=== PATIENT | male | born 1965 | race Caucasian/White ===

== ENCOUNTER → 2017-09-22 | Outpatient (CLI) | payer SELFPAY ==
[2017-09-22 13:52] LABS: HEMOGLOBIN 20.4 g/dL (13.5-18.0)
[2017-09-22 13:53] LABS: HEMATOCRIT 57.2 % (42.0-54.0)
== END ==
LOC: LAB 13:30
PROVIDERS: ATTEND Nurse Practitioner Family
DX: D58.2 Other hemoglobinopathies (principal)
CPT/HCPCS: 36415; 85014; 85018; 99195

== ENCOUNTER → 2017-10-05 | Outpatient (CLI) | payer SELFPAY ==
[2017-10-05 13:42] LABS: BASOPHILS # (AUTO) 0.1 X10^3/uL (0.0-0.1); BASOPHILS % (AUTO) 1.2 % (0.2-1.0); EOSINOPHILS # (AUTO) 0.1 x10^3/uL (0.0-0.2); EOSINOPHILS % (AUTO) 0.8 % (0.9-2.9); HEMATOCRIT 54.3 % (42.0-54.0); LYMPHOCYTES # (AUTO) 1.7 X10^3/uL (1.3-2.9); LYMPHOCYTES % (AUTO) 17.4 % (21.0-51.0); MEAN CORPUSCULAR HEMOGLOBIN 36.6 pg (27.0-34.0); MEAN CORPUSCULAR HGB CONC 35.3 g/dL (33.0-35.0); MEAN CORPUSCULAR VOLUME 103.6 fL (80.0-100.0); MEAN PLATELET VOLUME 8.2 fL (7.4-11.0); MONOCYTES # (AUTO) 0.9 x10^3/uL (0.3-0.8); MONOCYTES % (AUTO) 8.9 % (0.0-13.0); NEUTROPHILS # (AUTO) 6.9 x10^3/uL (2.2-4.8); NEUTROPHILS % (AUTO) 71.7 % (42.0-75.0); PLATELET COUNT 184 X10^3/uL (150.0-450.0); RED BLOOD COUNT 5.24 X10^6/uL (4.7-6.0); WHITE BLOOD COUNT 9.6 X10^3/uL (3.6-10.0)
[2017-10-05 14:07] LABS: HEMOGLOBIN 19.2 g/dL (13.5-18.0)
== END ==
LOC: LAB 13:20
PROVIDERS: ATTEND Nurse Practitioner Family
DX: D75.1 Secondary polycythemia (principal)
CPT/HCPCS: 36415; 85025; 99195

== ENCOUNTER 2018-04-26 15:58 | Inpatient (IN) ==
[2018-04-26] MEDS ORDERED: ZOFRAN INJ 4 MG VIAL IVP PRN (17:37)
--- NOTE | 2018-04-26 17:42 | DR.H&P ---
H&P - History & Physical for Day of: H&P Date: 04/26/18 - Chief Complaint Chief Complaint: ABDOMINAL PAIN, N/V, SOB, WEAKNESS - History of Present Illness History of Present Illness: 52 WM DIRECT ADMIT FROM DR CARRENO OFFICE WITH ER FOLLOW UP CO ABDOMINAL PAIN WITH N/V X 2 WEEKS, JAUNDICE, "NOT ATE IN 2 WEEKS" CAN HOLD SOME LIQUIDS DOWN. PT WAS SEEN IN [facility] ON 04/21 WITH PANCREATITIS AND LIVER CIRRHOSIS. SPOUSE REPORTS VERY WEAK, IN WHEELCHAIR, THICK TONGUE, NOT EATING. PT HAS PMH OF DAILY ETOH INTAKE, NOT ALCOHOL SINCE LAST WEDNESDAY. PT IS SMOKER. SPOUSE REPORTS VOMITING BLACK EMESIS, NO BRIGHT RED BLOOD. PT AND SPOUSE DENIES ANY S/S DT'S. NO KNOWN CARDIAC DISEASE, HX OF ELEVATED BP WITHOUT HYPERTENSION. - Past Medical History Past Medical History: Arthritis, Cirrhosis - Past Surgical History Surgical History: No History - Family History Family Medical History: Diabetes Mellitus, Cancer - Social History Does patient currently use any type of tobacco product: Yes Have you used tobacco products in the last 12 months: Yes Type of Tobacco Use: Cigarettes How many years tobacco product used: 30 Alcohol Use: Other (HX OF HEAVY ETOH INTAKE, REPORTS NONE SINCE 7 DAYS AGO) Drug Use: None - Medications Home Medications: No Known Drug Allergies Allergy (Verified 04/26/18 16:43) CONTINUE taking the following medications NK 04/26/18 [History] - Review of Systems Constitutional: Weakness, Malaise Eyes: Other (JAUNDICE SCLERA) ENT: No Symptoms Reported Respiratory: Shortness of Breath Cardiovascular: Edema Gastrointestinal: Nausea, Vomiting, Abdominal Pain, Constipation Genitourinary: No Symptoms Reported Musculoskeletal: Leg Pain Skin: Bruising Neurological: Weakness, Change in Speech ("THICK TONGUE") Oriented: Normal Eyes: Other (JAUNDICE) Ear: Normal Nose: Normal Throat: Normal Respiratory: RLL Diminished, LLL Diminished Cardiovascular: Normal, Irregular, Edema Auscultation: Bowel Sounds: Decreased Palpation: Liver Enlarged, Other (DIFFUSE DISTENSION) Tenderness: Diffuse Skin: Decreased Turgur Musculoskeletal: Right, Left, Leg, Motor Deficit, Sensory Deficit Psychiatric: Depression Mood Description: Depressed Affect: Depressed Speech Pattern: Appropriate, Delayed - Assessment/Plan (1) Pancreatitis Status: Acute Plan: ADMIT, ICU. ADMISSION LABS CBC CMP AMMONIA, AMYLASE AND LIPASE, UA. CT ABD PELVIS WITH IV CONTRAST. GENTLE IV HYDRATION, NAUSEA CONTROL, PPI. BEDSIDE SUCTION, DT PRECAUTIONS, CONTINUOUS CARDIAC AND BP MONITORING (2) Abdominal pain Status: Acute (3) Cirrhosis of liver Status: Acute (4) SOB (shortness of breath) Status: Acute (5) Ascites Status: Acute (6) N&V (nausea and vomiting) Status: Acute - Allergies Allergies/Adverse Reactions: Allergies Allergy/AdvReac Type Severity Reaction Status Date / Time No Known Drug Allergies Allergy Verified 04/26/18 16:43
[2018-04-26 17:46] LABS: BASOPHILS % (AUTO) 0.4 % (0.2-1.0); EOSINOPHILS % (AUTO) 0.1 % (0.9-2.9); HEMATOCRIT 35.1 % (42.0-54.0); HEMOGLOBIN 12.6 g/dL (13.5-18.0); LYMPHOCYTES # (AUTO) 1.1 X10^3/uL (1.3-2.9); LYMPHOCYTES % (AUTO) 13.5 % (21.0-51.0); MEAN CORPUSCULAR HEMOGLOBIN 43.7 pg (27.0-34.0); MEAN CORPUSCULAR HGB CONC 35.9 g/dL (33.0-35.0); MEAN CORPUSCULAR VOLUME 121.8 fL (80.0-100.0); MEAN PLATELET VOLUME 9.1 fL (7.4-11.0); MONOCYTES # (AUTO) 0.3 x10^3/uL (0.3-0.8); MONOCYTES % (AUTO) 3.5 % (0.0-13.0); NEUTROPHILS # (AUTO) 6.5 x10^3/uL (2.2-4.8); NEUTROPHILS % (AUTO) 82.5 % (42.0-75.0); PLATELET COUNT 131 X10^3/uL (150.0-450.0); RED BLOOD COUNT 2.88 X10^6/uL (4.7-6.0); RED CELL DISTRIBUTION WIDTH 16.3 % (11.6-16.5); WHITE BLOOD COUNT 7.9 X10^3/uL (3.6-10.0)
[2018-04-26 17:56] LABS: AMMONIA < 10 umol/L (11-32)
--- NOTE | 2018-04-26 17:59 | RAD ---
History shortness of breath Study: AP chest Comparison: None Findings: The lungs are clear and the heart and mediastinum are unremarkable. There is no edema or effusion. Impression: No evidence for active cardiopulmonary disease Reported By:
[2018-04-26] MEDS ORDERED: CHRONULAC PO SCH (18:00)
[2018-04-26 18:02] LABS: PLATELET MORPHOLOGY COMMENT NORMAL (NORMAL); TARGET CELLS NOTED
[2018-04-26 18:07] LABS: ALANINE AMINOTRANSFERASE 103 Units/L (12-78); ALKALINE PHOSPHATASE 228 Units/L (46-116); AMYLASE 50 Units/L (25-115); ASPARTATE AMINO TRANSFERASE 263 Units/L (15-37); BLOOD UREA NITROGEN 25 mg/dL (7-18); CALCIUM 8.6 mg/dL (8.5-10.1); CARBON DIOXIDE 27.8 mmol/L (21-32); CHLORIDE 85 mmol/L (98-107); COR CA(FOR HYPOALB) 9.4 mg/dL (8.5-10.1); CREATININE 1.14 mg/dL (0.70-1.30); LIPASE 845 Units/L (73-393); SODIUM 129 mmol/L (136-145); TOTAL PROTEIN 8.2 g/dL (6.4-8.2); eGFR NON BLACK RACES > 60 (>60)
[2018-04-26] MEDS: D5 1/2 NS 1000 ML 1,000 ML IV SCH (18:51)
[2018-04-26] MEDS: NS 1/2 1000 ML IV 1,000 ML IV SCH (18:52)
[2018-04-26] MEDS ORDERED: K-DUR TAB 20 MEQ PO PRN (20:59)
[2018-04-26] MEDS ORDERED: POTASSIUM CHL 40 MEQ/NS 0.45% 500 ML IV PRN (20:59)
[2018-04-26] MEDS ORDERED: MAGNESIUM SULFATE 1 GRAM/100 mL PREMIX 1 GM/100 ML BAG IV PRN (20:59)
[2018-04-26] MEDS ORDERED: MICRO K EXTEN CAP 10 MEQ PO PRN (20:59)
[2018-04-26] MEDS ORDERED: KLOR-CON PO PRN (20:59)
[2018-04-26] MEDS ORDERED: POTASSIUM CHLORIDE LIQ 20 MEQ UDC PO PRN (20:59)
[2018-04-26] MEDS ORDERED: POTASSIUM CHL 60 MEQ/NS 0.45% 500 ML IV PRN (20:59)
[2018-04-26] MEDS: PROTONIX INJ 40 MG VIAL IVP SCH (21:27)
[2018-04-27] MEDS ORDERED: NS 1/2 1000 ML IV 1,000 ML IV ONE (02:14)
[2018-04-27] MEDS: NS 1/2 1000 ML IV 1,000 ML IV SCH ×2 (02:27→18:54)
--- NOTE | 2018-04-27 06:26 | CT ---
HISTORY: Cirrhosis Study: CT abdomen pelvis with contrast Comparison: None Technique: Axial post-contrast images with coronal and sagittal reformats. Dose reduction procedures were used with mA/kv adjusted for body size. Findings: The lung bases are clear. There is a moderate amount of ascites present. The liver is enlarged and demonstrates a prominent caudate lobe and nodular contour suggestive of cirrhosis. Additionally there are large geographic areas of fatty infiltration interspersed with some more normal looking parenchyma creating a somewhat heterogeneous parenchymal pattern. Evaluation with MRI should be considered in order to exclude an underlying neoplastic process such as hepatocellular carcinoma which would be difficult to visualize on this examination. The spleen, adrenal glands, and pancreas are within normal limits. No opaque stones are visible within the gallbladder. There are prominent veins present adjacent to the stomach. Portal hypertension is likely present. The kidneys are unobstructed and without stones or masses. No ureteral calculi are identified. Calcific atherosclerotic changes present in a nondilated abdominal aorta. No intraperitoneal or retroperitoneal lymphadenopathy of significance is identified. There are no findings suggestive of diverticulitis, colitis, or enteritis. The appendix is normal. Examination of the pelvis demonstrated no evidence for pelvic masses, pelvic fluid, or pelvic lymphadenopathy. No bladder abnormality is identified. No lytic or blastic skeletal lesions are identified. IMPRESSION: Hepatomegaly, nodular hepatic contour, ascites, and prominent dilated intraperitoneal venous structures suggestive of cirrhosis with portal hypertension Unusual geographic pattern of diffuse fatty infiltration of the liver creating a heterogeneous parenchymal pattern which makes it difficult to entirely exclude an underlying neoplasm such as hepatocellular carcinoma which can be seen in cirrhosis. MRI would be of further diagnostic value. Reported By:
[2018-04-27 06:40] LABS: BASOPHILS % (AUTO) 0.7 % (0.2-1.0); EOSINOPHILS % (AUTO) 0.7 % (0.9-2.9); HEMATOCRIT 31.1 % (42.0-54.0); HEMOGLOBIN 11.1 g/dL (13.5-18.0); LYMPHOCYTES # (AUTO) 1.7 X10^3/uL (1.3-2.9); LYMPHOCYTES % (AUTO) 26.1 % (21.0-51.0); MEAN CORPUSCULAR HEMOGLOBIN 43.4 pg (27.0-34.0); MEAN CORPUSCULAR HGB CONC 35.7 g/dL (33.0-35.0); MEAN CORPUSCULAR VOLUME 121.7 fL (80.0-100.0); MEAN PLATELET VOLUME 9.3 fL (7.4-11.0); MONOCYTES # (AUTO) 0.2 x10^3/uL (0.3-0.8); MONOCYTES % (AUTO) 3.2 % (0.0-13.0); NEUTROPHILS # (AUTO) 4.5 x10^3/uL (2.2-4.8); NEUTROPHILS % (AUTO) 69.3 % (42.0-75.0); PLATELET COUNT 107 X10^3/uL (150.0-450.0); RED BLOOD COUNT 2.56 X10^6/uL (4.7-6.0); RED CELL DISTRIBUTION WIDTH 16.4 % (11.6-16.5); WHITE BLOOD COUNT 6.5 X10^3/uL (3.6-10.0)
[2018-04-27 07:05] LABS: ALANINE AMINOTRANSFERASE 93 Units/L (12-78); ALBUMIN 2.5 g/dL (3.4-5.0); ALKALINE PHOSPHATASE 186 Units/L (46-116); ASPARTATE AMINO TRANSFERASE 253 Units/L (15-37); BLOOD UREA NITROGEN 28 mg/dL (7-18); CALCIUM 7.9 mg/dL (8.5-10.1); CARBON DIOXIDE 28.5 mmol/L (21-32); CHLORIDE 87 mmol/L (98-107); COR CA(FOR HYPOALB) 9.1 mg/dL (8.5-10.1); CREATININE 0.75 mg/dL (0.70-1.30); SODIUM 127 mmol/L (136-145); TOTAL PROTEIN 7.1 g/dL (6.4-8.2); eGFR NON BLACK RACES > 60 (>60)
[2018-04-27 07:32] LABS: PLATELET MORPHOLOGY COMMENT NORMAL (NORMAL)
[2018-04-27] MEDS: D5 1/2 NS 1000 ML 1,000 ML IV SCH ×2 (07:37→11:56)
[2018-04-27 08:11] LABS: BILIRUBIN,URINE 3+ (NEGATIVE); BLOOD/HEMOGLOBIN,URINE 5+ (NEGATIVE); GLUCOSE, URINE NEGATIVE (NEGATIVE); KETONES,URINE 1+ (NEGATIVE); LEUKOCYTE ESTERASE ,URINE 1+ (NEGATIVE); NITRITES,URINE NEGATIVE (NEGATIVE); PH,URINE 6.5 (5.0 - 8.0); PROTEIN,URINE 2+ (NEGATIVE); UROBILINOGEN,URINE 4+ (NORMAL)
[2018-04-27 08:12] LABS: COLOR,URINE AMBER (YELLOW)
[2018-04-27 08:23] LABS: APPEARANCE,URINE SLIGHTLY HAZY (CLEAR); BACTERIA,URINE TRACE /HPF (NEGATIVE); HYALINE CASTS, URINE MANY /LPF (NEGATIVE); RBC,URINE 30-50 /HPF (NONE SEEN); SQUAMOUS EPITHELIAL CELL,UR FEW /HPF (NEGATIVE)
[2018-04-27] MEDS: PROTONIX INJ 40 MG VIAL IVP SCH (08:38)
[2018-04-27 10:13] LABS: CHOL/HDL RATIO 24.4 (0.0-5.0); FREE T4 (FREE THYROXINE) 1.14 ng/dL (0.76-1.46); TSH (3RD GENERATION) 5.729 uIU/mL (0.358-3.74)
[2018-04-27 10:19] LABS: TOTAL PSA 0.28 ng/mL (0.13-4.0)
[2018-04-27] MEDS: LIBRIUM PO PRN ×2 (11:57→21:01)
[2018-04-27] MEDS: LEVAQUIN PREMIX IV 500 MG 500 MG/100 ML BAG IV SCH (14:34)
--- NOTE | 2018-04-27 18:20 | MRI ---
Indication: Abnormal CT scan and cirrhosis. Exam: MRI abdomen with and without contrast. Technique: Routine multiplanar multisequence imaging was performed through the abdomen before after administration of 20 cc of MultiHance. Comparison: CT abdomen 04/26/2018. Findings: There is moderate hypertrophy of the caudate and left lobes of the liver with a nodular contour to the capsule which is unchanged. The spleen is mildly enlarged with mild ascites around the liver and spleen extending inferiorly into the paracolic regions which is less prominent . The hepatic and portal veins are patent. The gallbladder, bile ducts , and pancreas are normal . The adrenals are normal. The kidneys are normal size with no hydronephrosis or renal masses and no adenopathy. There are collateral vessels along the capsule of the liver . There is extensive heterogeneity throughout both lobes of liver which is mildly increased in signal on the T1 and T2 data sets. There is moderate heterogeneity and minimal heterogeneous enhancement throughout the lesions which is ill-defined . Bones are intact. Impression: Hepatomegaly with moderate chronic liver disease and extensive heterogeneous areas of abnormal signal throughout the liver which shows some minimal heterogeneous enhancement and is very diffuse and ill-defined. These could represent extensive regenerating nodules but cannot definitely rule out neoplasm or infiltrating hepatocellular carcinoma, suggest PET scan correlation or CT guided biopsy of these areas. Mild ascites throughout the abdomen and pelvis which is less prominent with no adenopathy . Mild splenomegaly with collateral vessels along the upper abdomen suggestive of portal hypertension. Reported By:
--- NOTE | 2018-04-27 18:35 | PCM.PROG ---
Progress Note - Progress Note for Day of Date of Exam: 04/27/18 - Subjective Subjective: 52 WM ADMITTED ON 04/26 WITH PANCREATITIS, ABDOMINAL PAIN WITH FOOD INTOLERANCE, N/V. PT HAD CT REVEALED CIRRHOSIS AND MODERATE ASCITES. CONSULTED DR CONNORS FOR PARACENTESIS. MRI OF ABD WITH CONTRAST ORDERED. PT THIS AM MORE AWAKE AND ALERT, ASKING FOR SPRITE. PT CO MILD SOB. FAMILY REPORTS IMPROVING WEAKNESS. REVIEWED LABS WITH PT AND FAMILY, CONSULT DR FORTE FOR MANAGEMENT OF CHRONIC LIVER DISEASE. HEPATITIS PROFILE ORDRED. CONTINUE GENTLE HYDRATION, I & OS, BP CONTROL PAIN AND NAUSEA CONTROL. IV LEVAQUIN. K 3.1, NA 127, 8.7 AST 253, ALT 93, 186 ALK PHOS - Past Medical Family Social History Past Med/Fam/Surg Hx: No changes since H&P Allergies: Allergies No Known Drug Allergies Allergy (Verified 04/26/18 16:43) - Review of Systems ROS: No change since H&P - Vital Signs and I&O's Vital Signs: Temperature 97.9 F Pulse Rate [Apical] 97 Respiratory Rate 17 Blood Pressure [Right Arm] 122/74 O2 Sat by Pulse Oximetry 98 Intake and Output: Intake & Output 04/25/18 04/26/18 04/27/18 04/28/18 11:59 11:59 11:59 11:59 Intake Total 1197 / 1197 740 / 740 Output Total 410 / 410 Balance 1197 / 1197 330 / 330 - Physical Exam Oriented: Normal Eyes: Other (JAUNDICE) Ear: Normal Nose: Normal Throat: Normal Respiratory: Diminished Cardiovascular: Normal, Irregular, Edema Auscultation: Bowel Sounds: Decreased Tenderness: Diffuse Skin: Decreased Turgur Musculoskeletal: Right, Left, Leg, Motor Deficit, Sensory Deficit Psychiatric: Depression Mood Description: Depressed Affect: Depressed Speech Pattern: Clear, Appropriate - Laboratory and Diagnostics Result Diagrams: 04/27/18 05:19 04/27/18 05:19 Labs: Laboratory WBC 6.5 X10^3/uL (3.6-10.0) 04/27/18 05:19 RBC 2.56 X10^6/uL (4.7-6.0) L 04/27/18 05:19 Hgb 11.1 g/dL (13.5-18.0) L 04/27/18 05:19 Hct 31.1 % (42.0-54.0) L 04/27/18 05:19 MCV 121.7 fL (80.0-100.0) H 04/27/18 05:19 MCH 43.4 pg (27.0-34.0) H 04/27/18 05:19 MCHC 35.7 g/dL (33.0-35.0) H 04/27/18 05:19 RDW 16.4 % (11.6-16.5) 04/27/18 05:19 Plt Count 107 X10^3/uL (150.0-450.0) L 04/27/18 05:19 Plt Count Comment Decreased (ADEQUATE) 04/27/18 05:19 MPV 9.3 fL (7.4-11.0) 04/27/18 05:19 Neut % (Auto) 69.3 % (42.0-75.0) 04/27/18 05:19 Lymph % (Auto) 26.1 % (21.0-51.0) 04/27/18 05:19 [place] % (Auto) 3.2 % (0.0-13.0) 04/27/18 05:19 Eos % (Auto) 0.7 % (0.9-2.9) L 04/27/18 05:19 Baso % (Auto) 0.7 % (0.2-1.0) 04/27/18 05:19 Neut # (Auto) 4.5 x10^3/uL (2.2-4.8) 04/27/18 05:19 Lymph # (Auto) 1.7 X10^3/uL (1.3-2.9) 04/27/18 05:19 [place] # (Auto) 0.2 x10^3/uL (0.3-0.8) L 04/27/18 05:19 Eos # (Auto) 0.0 x10^3/uL (0.0-0.2) 04/27/18 05:19 Baso # (Auto) 0.0 X10^3/uL (0.0-0.1) 04/27/18 05:19 Absolute Nucleated RBC 0.4 /100WBC 04/27/18 05:19 Total Counted 100 04/27/18 05:19 Neutrophils % (Manual) 72 % (39-76) 04/27/18 05:19 Lymphocytes % (Manual) 13 % (13-43) 04/27/18 05:19 Monocytes % (Manual) 5 % (4-9) 04/27/18 05:19 Plt Morphology Comment Normal (NORMAL) 04/27/18 05:19 RBC Morphology Abnormal (NORMAL) 04/27/18 05:19 Macrocytosis 3+ A 04/27/18 05:19 Target Cells Noted 04/26/18 17:17 INR Target Range - 04/26/18 17:17 INR 1.40 (0.8-1.3) H 04/26/18 17:17 Sodium 127 mmol/L (136-145) L 04/27/18 05:19 Corrected Sodium TNP 04/27/18 05:19 Potassium 3.1 mmol/L (3.5-5.1) L 04/27/18 05:19 Chloride 87 mmol/L (98-107) L 04/27/18 05:19 Carbon Dioxide 28.5 mmol/L (21-32) 04/27/18 05:19 BUN 28 mg/dL (7-18) H 04/27/18 05:19 Creatinine 0.75 mg/dL (0.70-1.30) 04/27/18 05:19 Est GFR (MDRD) Af Amer > 60 (>60) 04/27/18 05:19 Est GFR (MDRD) Non-Af > 60 (>60) 04/27/18 05:19 Glucose 100 mg/dL (65-99) H 04/27/18 05:19 Calcium 7.9 mg/dL (8.5-10.1) L 04/27/18 05:19 Corrected Calcium 9.1 mg/dL (8.5-10.1) 04/27/18 05:19 Magnesium 2.2 mg/dL (1.7-2.9) 04/26/18 17:17 Total Bilirubin 8.70 mg/dL (0.2-1.0) H 04/27/18 05:19 AST 253 Units/L (15-37) H 04/27/18 05:19 ALT 93 Units/L (12-78) H 04/27/18 05:19 Alkaline Phosphatase 186 Units/L (46-116) H 04/27/18 05:19 Ammonia < 10 umol/L (11-32) L 04/26/18 17:17 Total Protein 7.1 g/dL (6.4-8.2) 04/27/18 05:19 Albumin 2.5 g/dL (3.4-5.0) L 04/27/18 05:19 Globulin 4.6 g/dL (2.5-4.5) H 04/27/18 05:19 Albumin/Globulin Ratio 0.5 Ratio (1.1-2.1) L 04/27/18 05:19 Triglycerides 417 mg/dL (0-150) H 04/27/18 05:19 Cholesterol 195 mg/dL (0-200) 04/27/18 05:19 LDL Cholesterol, Calc 104 mg/dL (0-100) H 04/27/18 05:19 HDL Cholesterol 8 mg/dL (40-60) L 04/27/18 05:19 Cholesterol/HDL Ratio 24.4 (0.0-5.0) H 04/27/18 05:19 Amylase 50 Units/L (25-115) 04/26/18 17:17 Lipase 845 Units/L (73-393) H 04/26/18 17:17 Total PSA 0.28 ng/mL (0.13-4.0) 04/27/18 05:19 Free T4 1.14 ng/dL (0.76-1.46) 04/27/18 05:19 TSH 3rd Generation 5.729 uIU/mL (0.358-3.74) H 04/27/18 05:19 Specimen Type Clean catch urine 04/27/18 08:02 Urine Color [place] (YELLOW) 04/27/18 08:02 Urine Appearance Slightly hazy (CLEAR) 04/27/18 08:02 Urine pH 6.5 (5.0 - 8.0) 04/27/18 08:02 Ur Specific [place] 1.010 (1.000-1.030) 04/27/18 08:02 Urine Protein 2+ (NEGATIVE) 04/27/18 08:02 Urine Glucose (UA) Negative (NEGATIVE) 04/27/18 08:02 Urine Ketones 1+ (NEGATIVE) 04/27/18 08:02 Urine Occult Blood 5+ (NEGATIVE) 04/27/18 08:02 Urine Nitrite Negative (NEGATIVE) 04/27/18 08:02 Urine Bilirubin 3+ (NEGATIVE) 04/27/18 08:02 Urine Urobilinogen 4+ (NORMAL) 04/27/18 08:02 Ur Leukocyte Esterase 1+ (NEGATIVE) 04/27/18 08:02 Urine RBC 30-50 /HPF (NONE SEEN) 04/27/18 08:02 Urine WBC 5-10 /HPF (NONE SEEN) 04/27/18 08:02 Ur Squamous Epith Cells Few /HPF (NEGATIVE) 04/27/18 08:02 Urine Bacteria Trace /HPF (NEGATIVE) 04/27/18 08:02 Hyaline Casts Many /LPF (NEGATIVE) 04/27/18 08:02 Ur Culture Indicated? No/not indicated 04/27/18 08:02 - Plan (1) Pancreatitis Status: Acute Plan: REPEAT AM CBC CMP AMMONIA, AMYLASE AND LIPASE, UA. CT ABD PELVIS WITH IV CONTRAST DONE ON ADMISSION, SUGGEST MRI ABD ORDERED FOR TODAY. GENTLE IV HYDRATION, NAUSEA CONTROL, PPI. BEDSIDE SUCTION, DT PRECAUTIONS, CONTINUOUS CARDIAC AND BP MONITORING, CONSULT DR CONNORS, CONSULT DR FORTE (2) Abdominal pain Status: Acute (3) Cirrhosis of liver Status: Acute (4) SOB (shortness of breath) Status: Acute (5) Ascites Status: Acute (6) N&V (nausea and vomiting) Status: Acute (7) Hyponatremia Status: Acute
[2018-04-27] MEDS ORDERED: K-DUR TAB 20 MEQ PO PRN (18:56)
[2018-04-27] MEDS ORDERED: POTASSIUM CHLORIDE LIQ 20 MEQ UDC PO PRN (18:56)
[2018-04-27] MEDS ORDERED: POTASSIUM CHL 40 MEQ/NS 0.45% 500 ML IV PRN (18:56)
[2018-04-27] MEDS ORDERED: KLOR-CON PO PRN (18:56)
[2018-04-27] MEDS ORDERED: MICRO K EXTEN CAP 10 MEQ PO PRN (18:56)
[2018-04-27] MEDS ORDERED: POTASSIUM CHL 60 MEQ/NS 0.45% 500 ML IV PRN (18:56)
[2018-04-27] MEDS: K-RIDER 10 MEQ/NS 100 ML 10 MEQ/100 ML BAG IV PRN ×3 (21:01→23:57)
[2018-04-27 22:11] VITALS: BMI 29.2
[2018-04-28] MEDS: K-RIDER 10 MEQ/NS 100 ML 10 MEQ/100 ML BAG IV PRN ×2 (00:59→22:47)
[2018-04-28 06:36] LABS: BASOPHILS % (AUTO) 0.6 % (0.2-1.0); EOSINOPHILS % (AUTO) 0.3 % (0.9-2.9); HEMATOCRIT 31.5 % (42.0-54.0); HEMOGLOBIN 11.3 g/dL (13.5-18.0); LYMPHOCYTES # (AUTO) 1.9 X10^3/uL (1.3-2.9); LYMPHOCYTES % (AUTO) 30.7 % (21.0-51.0); MEAN CORPUSCULAR HEMOGLOBIN 43.8 pg (27.0-34.0); MEAN CORPUSCULAR HGB CONC 35.9 g/dL (33.0-35.0); MEAN CORPUSCULAR VOLUME 122.1 fL (80.0-100.0); MONOCYTES # (AUTO) 0.2 x10^3/uL (0.3-0.8); MONOCYTES % (AUTO) 3.8 % (0.0-13.0); NEUTROPHILS # (AUTO) 4.1 x10^3/uL (2.2-4.8); NEUTROPHILS % (AUTO) 64.6 % (42.0-75.0); PLATELET COUNT 91 X10^3/uL (150.0-450.0); RED BLOOD COUNT 2.58 X10^6/uL (4.7-6.0); RED CELL DISTRIBUTION WIDTH 16.3 % (11.6-16.5); WHITE BLOOD COUNT 6.3 X10^3/uL (3.6-10.0)
[2018-04-28 06:53] LABS: ALANINE AMINOTRANSFERASE 119 Units/L (12-78); ALBUMIN 2.5 g/dL (3.4-5.0); ALKALINE PHOSPHATASE 195 Units/L (46-116); ASPARTATE AMINO TRANSFERASE 319 Units/L (15-37); BLOOD UREA NITROGEN 29 mg/dL (7-18); CALCIUM 8.4 mg/dL (8.5-10.1); CARBON DIOXIDE 26.5 mmol/L (21-32); CHLORIDE 87 mmol/L (98-107); COR CA(FOR HYPOALB) 9.6 mg/dL (8.5-10.1); CREATININE 0.72 mg/dL (0.70-1.30); SODIUM 126 mmol/L (136-145); TOTAL PROTEIN 7.2 g/dL (6.4-8.2); eGFR NON BLACK RACES > 60 (>60)
[2018-04-28 07:20] LABS: PLATELET MORPHOLOGY COMMENT NORMAL (NORMAL); TARGET CELLS NOTED
[2018-04-28] MEDS: LEVAQUIN PREMIX IV 500 MG 500 MG/100 ML BAG IV SCH (10:16)
[2018-04-28] MEDS: MILK OF MAGNESIA PO SCH (10:17)
[2018-04-28] MEDS: PROTONIX INJ 40 MG VIAL IVP SCH (10:17)
[2018-04-28] MEDS ORDERED: NS 500 ML IV 500 ML IV ONE (12:08)
[2018-04-28] MEDS ORDERED: DIPRIVAN VIAL 20 ML ONE (12:22)
--- NOTE | 2018-04-28 13:46 | PCM.PROG ---
Progress Note - Progress Note for Day of Date of Exam: 04/28/18 - Subjective Subjective: 52 WM ADMITTED ON 04/26 WITH PANCREATITIS, ABDOMINAL PAIN WITH FOOD INTOLERANCE, N/V. PT HAD CT REVEALED CIRRHOSIS AND MODERATE ASCITES. CONSULTED DR CONNORS FOR PARACENTESIS, 800CC FLUID REMOVED AND SPECIMEN SENT FOR CYTOLOGY. MRI OF ABD WITH CONTRAST REVEALED Hepatomegaly with moderate chronic liver disease and extensive heterogeneous. areas of abnormal signal throughout the liver which shows some minimal. heterogeneous enhancement and is very diffuse and ill-defined. PT THIS AM MORE AWAKE AND ALERT, ASKING FOR SPRITE. PT CO MILD SOB. FAMILY REPORTS IMPROVING WEAKNESS. REVIEWED LABS WITH PT AND FAMILY, CONSULT DR FORTE FOR MANAGEMENT OF CHRONIC LIVER DISEASE. HEPATITIS PROFILE ORD RED. CONTINUE GENTLE HYDRATION, I & OS, BP CONTROL PAIN AND NAUSEA CONTROL. IV LEVAQUIN. - Past Medical Family Social History Past Med/Fam/Surg Hx: No changes since H&P Allergies: Allergies No Known Drug Allergies Allergy (Verified 04/26/18 16:43) - Review of Systems ROS: No change since H&P - Vital Signs and I&O's Vital Signs: Temperature 98.1 F Pulse Rate [Apical] 93 Pulse Rate 94 Respiratory Rate 20 Blood Pressure [Right Arm] 112/69 Blood Pressure 124/86 O2 Sat by Pulse Oximetry 94 Intake and Output: Intake & Output 04/26/18 04/27/18 04/28/18 04/29/18 11:59 11:59 11:59 11:59 Intake Total 1197 / 1197 1598 / 1598 Output Total 410 / 410 Balance 1197 / 1197 1188 / 1188 - Physical Exam Oriented: Normal Eyes: Other (JAUNDICE) Ear: Normal Nose: Normal Throat: Normal Respiratory: Diminished Cardiovascular: Normal, Irregular, Edema Auscultation: Bowel Sounds: Decreased Tenderness: Diffuse Skin: Decreased Turgur Musculoskeletal: Right, Left, Leg, Motor Deficit, Sensory Deficit Psychiatric: Depression Mood Description: Depressed Affect: Depressed Speech Pattern: Clear, Appropriate - Laboratory and Diagnostics Result Diagrams: 04/28/18 05:28 04/28/18 05:28 Labs: 04/28/18 10:29 Paracentesis Gram Stain - Final Laboratory WBC 6.3 X10^3/uL (3.6-10.0) 04/28/18 05:28 RBC 2.58 X10^6/uL (4.7-6.0) L 04/28/18 05:28 Hgb 11.3 g/dL (13.5-18.0) L 04/28/18 05:28 Hct 31.5 % (42.0-54.0) L 04/28/18 05:28 MCV 122.1 fL (80.0-100.0) H 04/28/18 05:28 MCH 43.8 pg (27.0-34.0) H 04/28/18 05:28 MCHC 35.9 g/dL (33.0-35.0) H 04/28/18 05:28 RDW 16.3 % (11.6-16.5) 04/28/18 05:28 Plt Count 91 X10^3/uL (150.0-450.0) L 04/28/18 05:28 Plt Count Comment Decreased (ADEQUATE) 04/28/18 05:28 MPV 9.0 fL (7.4-11.0) 04/28/18 05:28 Neut % (Auto) 64.6 % (42.0-75.0) 04/28/18 05:28 Lymph % (Auto) 30.7 % (21.0-51.0) 04/28/18 05:28 [place] % (Auto) 3.8 % (0.0-13.0) 04/28/18 05:28 Eos % (Auto) 0.3 % (0.9-2.9) L 04/28/18 05:28 Baso % (Auto) 0.6 % (0.2-1.0) 04/28/18 05:28 Neut # (Auto) 4.1 x10^3/uL (2.2-4.8) 04/28/18 05:28 Lymph # (Auto) 1.9 X10^3/uL (1.3-2.9) 04/28/18 05:28 [place] # (Auto) 0.2 x10^3/uL (0.3-0.8) L 04/28/18 05:28 Eos # (Auto) 0.0 x10^3/uL (0.0-0.2) 04/28/18 05:28 Baso # (Auto) 0.0 X10^3/uL (0.0-0.1) 04/28/18 05:28 Absolute Nucleated RBC 0.4 /100WBC 04/28/18 05:28 Total Counted 100 04/28/18 05:28 Neutrophils % (Manual) 74 % (39-76) 04/28/18 05:28 Lymphocytes % (Manual) 20 % (13-43) 04/28/18 05:28 Monocytes % (Manual) 6 % (4-9) 04/28/18 05:28 Plt Morphology Comment Normal (NORMAL) 04/28/18 05:28 RBC Morphology Abnormal (NORMAL) 04/28/18 05:28 Macrocytosis 3+ A 04/28/18 05:28 Target Cells Noted 04/28/18 05:28 INR Target Range - 04/26/18 17:17 INR 1.40 (0.8-1.3) H 04/26/18 17:17 Sodium 126 mmol/L (136-145) L 04/28/18 05:28 Corrected Sodium TNP 04/28/18 05:28 Potassium 3.7 mmol/L (3.5-5.1) 04/28/18 05:28 Chloride 87 mmol/L (98-107) L 04/28/18 05:28 Carbon Dioxide 26.5 mmol/L (21-32) 04/28/18 05:28 BUN 29 mg/dL (7-18) H 04/28/18 05:28 Creatinine 0.72 mg/dL (0.70-1.30) 04/28/18 05:28 Est GFR (MDRD) Af Amer > 60 (>60) 04/28/18 05:28 Est GFR (MDRD) Non-Af > 60 (>60) 04/28/18 05:28 Glucose 103 mg/dL (65-99) H 04/28/18 05:28 Calcium 8.4 mg/dL (8.5-10.1) L 04/28/18 05:28 Corrected Calcium 9.6 mg/dL (8.5-10.1) 04/28/18 05:28 Magnesium 2.2 mg/dL (1.7-2.9) 04/27/18 05:12 Total Bilirubin 10.50 mg/dL (0.2-1.0) H 04/28/18 05:28 AST 319 Units/L (15-37) H 04/28/18 05:28 ALT 119 Units/L (12-78) H 04/28/18 05:28 Alkaline Phosphatase 195 Units/L (46-116) H 04/28/18 05:28 Ammonia < 10 umol/L (11-32) L 04/26/18 17:17 Total Protein 7.2 g/dL (6.4-8.2) 04/28/18 05:28 Albumin 2.5 g/dL (3.4-5.0) L 04/28/18 05:28 Globulin 4.7 g/dL (2.5-4.5) H 04/28/18 05:28 Albumin/Globulin Ratio 0.5 Ratio (1.1-2.1) L 04/28/18 05:28 Triglycerides 417 mg/dL (0-150) H 04/27/18 05:19 Cholesterol 195 mg/dL (0-200) 04/27/18 05:19 LDL Cholesterol, Calc 104 mg/dL (0-100) H 04/27/18 05:19 HDL Cholesterol 8 mg/dL (40-60) L 04/27/18 05:19 Cholesterol/HDL Ratio 24.4 (0.0-5.0) H 04/27/18 05:19 Amylase 50 Units/L (25-115) 04/26/18 17:17 Lipase 845 Units/L (73-393) H 04/26/18 17:17 Total PSA 0.28 ng/mL (0.13-4.0) 04/27/18 05:19 Free T4 1.14 ng/dL (0.76-1.46) 04/27/18 05:19 TSH 3rd Generation 5.729 uIU/mL (0.358-3.74) H 04/27/18 05:19 Specimen Type Clean catch urine 04/27/18 08:02 Urine Color [place] (YELLOW) 04/27/18 08:02 Urine Appearance Slightly hazy (CLEAR) 04/27/18 08:02 Urine pH 6.5 (5.0 - 8.0) 04/27/18 08:02 Ur Specific [place] 1.010 (1.000-1.030) 04/27/18 08:02 Urine Protein 2+ (NEGATIVE) 04/27/18 08:02 Urine Glucose (UA) Negative (NEGATIVE) 04/27/18 08:02 Urine Ketones 1+ (NEGATIVE) 04/27/18 08:02 Urine Occult Blood 5+ (NEGATIVE) 04/27/18 08:02 Urine Nitrite Negative (NEGATIVE) 04/27/18 08:02 Urine Bilirubin 3+ (NEGATIVE) 04/27/18 08:02 Urine Urobilinogen 4+ (NORMAL) 04/27/18 08:02 Ur Leukocyte Esterase 1+ (NEGATIVE) 04/27/18 08:02 Urine RBC 30-50 /HPF (NONE SEEN) 04/27/18 08:02 Urine WBC 5-10 /HPF (NONE SEEN) 04/27/18 08:02 Ur Squamous Epith Cells Few /HPF (NEGATIVE) 04/27/18 08:02 Urine Bacteria Trace /HPF (NEGATIVE) 04/27/18 08:02 Hyaline Casts Many /LPF (NEGATIVE) 04/27/18 08:02 Ur Culture Indicated? No/not indicated 04/27/18 08:02 - Plan (1) Pancreatitis Status: Acute Plan: REPEAT AM CBC CMP AMMONIA, AMYLASE AND LIPASE, UA. CT ABD PELVIS WITH IV CONTRAST DONE ON ADMISSION, SUGGEST MRI ABD ORDERED FOR TODAY. GENTLE IV HYDRATION, NAUSEA CONTROL, PPI. BEDSIDE SUCTION, DT PRECAUTIONS, CONTINUOUS CARDIAC AND BP MONITORING, CONSULT DR CONNORS, CONSULT DR FORTE (2) Abdominal pain Status: Acute (3) Cirrhosis of liver Status: Acute (4) SOB (shortness of breath) Status: Acute (5) Ascites Status: Acute (6) N&V (nausea and vomiting) Status: Acute (7) Hyponatremia Status: Acute
[2018-04-28] MEDS: DIFLUCAN PO SCH (14:05)
[2018-04-28] MEDS ORDERED: STERILE WATER IRRIGATION IR ONE (14:06)
[2018-04-28] MEDS: MYCELEX TROCHE MT SCH ×2 (16:34→21:20)
[2018-04-28] MEDS: COLACE CAP 100 MG PO SCH (21:19)
[2018-04-28] MEDS: LIBRIUM PO PRN (21:19)
[2018-04-28] MEDS: NICOTINE PATCH TD SCH (21:22)
[2018-04-28] MEDS: CHECK PATCH XX SCH (21:24)
[2018-04-29] MEDS ORDERED: NS 1/2 1000 ML IV 1,000 ML IV ONE ×2 (00:19→20:39)
[2018-04-29] MEDS: NS 1/2 1000 ML IV 1,000 ML IV SCH ×3 (00:26→20:44)
[2018-04-29] MEDS: K-RIDER 10 MEQ/NS 100 ML 10 MEQ/100 ML BAG IV PRN (02:25)
[2018-04-29] MEDS: MYCELEX TROCHE MT SCH ×5 (05:00→20:50)
[2018-04-29 06:21] LABS: BASOPHILS % (AUTO) 0.6 % (0.2-1.0); EOSINOPHILS % (AUTO) 0.4 % (0.9-2.9); HEMATOCRIT 31.8 % (42.0-54.0); HEMOGLOBIN 11.3 g/dL (13.5-18.0); LYMPHOCYTES % (AUTO) 31.5 % (21.0-51.0); MEAN CORPUSCULAR HEMOGLOBIN 43.9 pg (27.0-34.0); MEAN CORPUSCULAR HGB CONC 35.6 g/dL (33.0-35.0); MEAN CORPUSCULAR VOLUME 123.2 fL (80.0-100.0); MEAN PLATELET VOLUME 9.6 fL (7.4-11.0); MONOCYTES # (AUTO) 0.2 x10^3/uL (0.3-0.8); MONOCYTES % (AUTO) 3.9 % (0.0-13.0); NEUTROPHILS % (AUTO) 63.6 % (42.0-75.0); PLATELET COUNT 90 X10^3/uL (150.0-450.0); RED BLOOD COUNT 2.58 X10^6/uL (4.7-6.0); RED CELL DISTRIBUTION WIDTH 16.1 % (11.6-16.5); WHITE BLOOD COUNT 6.3 X10^3/uL (3.6-10.0)
--- NOTE | 2018-04-29 06:30 | RAD ---
HISTORY: Shortness of breath Study: Chest AP portable Comparison: 04/26/2018 Findings: The heart is within normal limits in size. The dameon are normal. The lungs are free of acute infiltrates. No pleural effusions are identified. The bony thorax is unremarkable. IMPRESSION: No significant abnormality identified Reported By:
[2018-04-29 06:45] LABS: ALANINE AMINOTRANSFERASE 152 Units/L (12-78); ALBUMIN 2.4 g/dL (3.4-5.0); ALKALINE PHOSPHATASE 191 Units/L (46-116); AMYLASE 21 Units/L (25-115); ASPARTATE AMINO TRANSFERASE 408 Units/L (15-37); BLOOD UREA NITROGEN 24 mg/dL (7-18); CALCIUM 8.2 mg/dL (8.5-10.1); CARBON DIOXIDE 25.9 mmol/L (21-32); CHLORIDE 87 mmol/L (98-107); COR CA(FOR HYPOALB) 9.5 mg/dL (8.5-10.1); CREATININE 0.63 mg/dL (0.70-1.30); LIPASE 482 Units/L (73-393); SODIUM 128 mmol/L (136-145); eGFR NON BLACK RACES > 60 (>60)
[2018-04-29 07:16] LABS: PLATELET MORPHOLOGY COMMENT NORMAL (NORMAL)
[2018-04-29 07:17] LABS: TARGET CELLS NOTED
[2018-04-29] MEDS: MILK OF MAGNESIA PO SCH (08:42)
[2018-04-29] MEDS: NICOTINE PATCH TD SCH (08:42)
[2018-04-29] MEDS: LEVAQUIN PREMIX IV 500 MG 500 MG/100 ML BAG IV SCH (08:42)
[2018-04-29] MEDS: DIFLUCAN PO SCH (08:43)
[2018-04-29] MEDS: PROTONIX INJ 40 MG VIAL IVP SCH (08:43)
[2018-04-29] MEDS: CHECK PATCH XX SCH ×2 (09:00→20:50)
--- NOTE | 2018-04-29 12:45 | PCM.PROG ---
Progress Note - Progress Note for Day of Date of Exam: 04/29/18 - Subjective Subjective: 52 WM ADMITTED ON 04/26 WITH PANCREATITIS, ABDOMINAL PAIN WITH FOOD INTOLERANCE, N/V. PT HAD CT REVEALED CIRRHOSIS AND MODERATE ASCITES. CONSULTED DR CONNORS FOR PARACENTESIS, 800CC FLUID REMOVED AND SPECIMEN SENT FOR CYTOLOGY. CATH D/C LATE YESTERDAY AFTERNOON. PT THIS AM MORE AWAKE AND ALERT, CONTINUES TO CO FEELING "VERY WEAK" PT CO MILD SOB. FAMILY REPORTS IMPROVING WEAKNESS. REVIEWED LABS WITH PT AND FAMILY, PLATELET 90, BILI 10.90, AST 408, ALT 152, ALK PHOS 191, LIPASE 482. DR FORTE CONSULTED, PERFORMED EGD ON 04/28. 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 - Past Medical Family Social History Past Med/Fam/Surg Hx: No changes since H&P Allergies: Allergies No Known Drug Allergies Allergy (Verified 04/26/18 16:43) - Review of Systems ROS: No change since H&P - Vital Signs and I&O's Vital Signs: Temperature 98.3 F Pulse Rate [Apical] 100 Pulse Rate 97 Respiratory Rate 19 Blood Pressure [Right Arm] 114/72 Blood Pressure 115/69 O2 Sat by Pulse Oximetry 96 Intake and Output: Intake & Output 04/27/18 04/28/18 04/29/18 04/30/18 11:59 11:59 11:59 11:59 Intake Total 1197 / 1197 1598 / 1598 2865 / 2865 Output Total 410 / 410 1050 / 1050 Balance 1197 / 1197 1188 / 1188 1815 / 1815 - Physical Exam Oriented: Normal Eyes: Other (JAUNDICE) Ear: Normal Nose: Normal Throat: Normal Respiratory: Diminished Cardiovascular: Normal, Irregular, Edema Auscultation: Bowel Sounds: Decreased Tenderness: Diffuse Skin: Decreased Turgur Musculoskeletal: Right, Left, Leg, Motor Deficit, Sensory Deficit Psychiatric: Depression Mood Description: Depressed Affect: Depressed Speech Pattern: Clear, Appropriate - Laboratory and Diagnostics Result Diagrams: 04/29/18 05:20 04/29/18 05:20 Labs: 04/28/18 10:20 Paracentesis - Preliminary 04/28/18 10:29 Paracentesis Gram Stain - Final Laboratory WBC 6.3 X10^3/uL (3.6-10.0) 04/29/18 05:20 RBC 2.58 X10^6/uL (4.7-6.0) L 04/29/18 05:20 Hgb 11.3 g/dL (13.5-18.0) L 04/29/18 05:20 Hct 31.8 % (42.0-54.0) L 04/29/18 05:20 MCV 123.2 fL (80.0-100.0) H 04/29/18 05:20 MCH 43.9 pg (27.0-34.0) H 04/29/18 05:20 MCHC 35.6 g/dL (33.0-35.0) H 04/29/18 05:20 RDW 16.1 % (11.6-16.5) 04/29/18 05:20 Plt Count 90 X10^3/uL (150.0-450.0) L 04/29/18 05:20 Plt Count Comment Decreased (ADEQUATE) 04/29/18 05:20 MPV 9.6 fL (7.4-11.0) 04/29/18 05:20 Neut % (Auto) 63.6 % (42.0-75.0) 04/29/18 05:20 Lymph % (Auto) 31.5 % (21.0-51.0) 04/29/18 05:20 [place] % (Auto) 3.9 % (0.0-13.0) 04/29/18 05:20 Eos % (Auto) 0.4 % (0.9-2.9) L 04/29/18 05:20 Baso % (Auto) 0.6 % (0.2-1.0) 04/29/18 05:20 Neut # (Auto) 4.0 x10^3/uL (2.2-4.8) 04/29/18 05:20 Lymph # (Auto) 2.0 X10^3/uL (1.3-2.9) 04/29/18 05:20 [place] # (Auto) 0.2 x10^3/uL (0.3-0.8) L 04/29/18 05:20 Eos # (Auto) 0.0 x10^3/uL (0.0-0.2) 04/29/18 05:20 Baso # (Auto) 0.0 X10^3/uL (0.0-0.1) 04/29/18 05:20 Absolute Nucleated RBC 0.1 /100WBC 04/29/18 05:20 Total Counted 100 04/29/18 05:20 Neutrophils % (Manual) 71 % (39-76) 04/29/18 05:20 Lymphocytes % (Manual) 23 % (13-43) 04/29/18 05:20 Monocytes % (Manual) 5 % (4-9) 04/29/18 05:20 Eosinophils % (Manual) 1 % (0-6) 04/29/18 05:20 Plt Morphology Comment Normal (NORMAL) 04/29/18 05:20 RBC Morphology Abnormal (NORMAL) 04/29/18 05:20 Macrocytosis 3+ A 04/29/18 05:20 Target Cells Noted 04/29/18 05:20 INR Target Range - 04/26/18 17:17 INR 1.40 (0.8-1.3) H 04/26/18 17:17 Sodium 128 mmol/L (136-145) L 04/29/18 05:20 Corrected Sodium TNP 04/29/18 05:20 Potassium 4.2 mmol/L (3.5-5.1) 04/29/18 05:20 Chloride 87 mmol/L (98-107) L 04/29/18 05:20 Carbon Dioxide 25.9 mmol/L (21-32) 04/29/18 05:20 BUN 24 mg/dL (7-18) H 04/29/18 05:20 Creatinine 0.63 mg/dL (0.70-1.30) L 04/29/18 05:20 Est GFR (MDRD) Af Amer > 60 (>60) 04/29/18 05:20 Est GFR (MDRD) Non-Af > 60 (>60) 04/29/18 05:20 Glucose 91 mg/dL (65-99) 04/29/18 05:20 Calcium 8.2 mg/dL (8.5-10.1) L 04/29/18 05:20 Corrected Calcium 9.5 mg/dL (8.5-10.1) 04/29/18 05:20 Magnesium 2.2 mg/dL (1.7-2.9) 04/27/18 05:12 Total Bilirubin 10.90 mg/dL (0.2-1.0) H 04/29/18 05:20 Direct Bilirubin 8.80 mg/dL (0-0.2) H* 04/29/18 05:20 AST 408 Units/L (15-37) H 04/29/18 05:20 ALT 152 Units/L (12-78) H 04/29/18 05:20 Alkaline Phosphatase 191 Units/L (46-116) H 04/29/18 05:20 Ammonia < 10 umol/L (11-32) L 04/26/18 17:17 Total Protein 7.0 g/dL (6.4-8.2) 04/29/18 05:20 Albumin 2.4 g/dL (3.4-5.0) L 04/29/18 05:20 Globulin 4.6 g/dL (2.5-4.5) H 04/29/18 05:20 Albumin/Globulin Ratio 0.5 Ratio (1.1-2.1) L 04/29/18 05:20 Triglycerides 417 mg/dL (0-150) H 04/27/18 05:19 Cholesterol 195 mg/dL (0-200) 04/27/18 05:19 LDL Cholesterol, Calc 104 mg/dL (0-100) H 04/27/18 05:19 HDL Cholesterol 8 mg/dL (40-60) L 04/27/18 05:19 Cholesterol/HDL Ratio 24.4 (0.0-5.0) H 04/27/18 05:19 Amylase 21 Units/L (25-115) L 04/29/18 05:20 Lipase 482 Units/L (73-393) H 04/29/18 05:20 Total PSA 0.28 ng/mL (0.13-4.0) 04/27/18 05:19 Free T4 1.14 ng/dL (0.76-1.46) 04/27/18 05:19 TSH 3rd Generation 5.729 uIU/mL (0.358-3.74) H 04/27/18 05:19 Specimen Type Clean catch urine 04/27/18 08:02 Urine Color [place] (YELLOW) 04/27/18 08:02 Urine Appearance Slightly hazy (CLEAR) 04/27/18 08:02 Urine pH 6.5 (5.0 - 8.0) 04/27/18 08:02 Ur Specific [place] 1.010 (1.000-1.030) 04/27/18 08:02 Urine Protein 2+ (NEGATIVE) 04/27/18 08:02 Urine Glucose (UA) Negative (NEGATIVE) 04/27/18 08:02 Urine Ketones 1+ (NEGATIVE) 04/27/18 08:02 Urine Occult Blood 5+ (NEGATIVE) 04/27/18 08:02 Urine Nitrite Negative (NEGATIVE) 04/27/18 08:02 Urine Bilirubin 3+ (NEGATIVE) 04/27/18 08:02 Urine Urobilinogen 4+ (NORMAL) 04/27/18 08:02 Ur Leukocyte Esterase 1+ (NEGATIVE) 04/27/18 08:02 Urine RBC 30-50 /HPF (NONE SEEN) 04/27/18 08:02 Urine WBC 5-10 /HPF (NONE SEEN) 04/27/18 08:02 Ur Squamous Epith Cells Few /HPF (NEGATIVE) 04/27/18 08:02 Urine Bacteria Trace /HPF (NEGATIVE) 04/27/18 08:02 Hyaline Casts Many /LPF (NEGATIVE) 04/27/18 08:02 Ur Culture Indicated? No/not indicated 04/27/18 08:02 - Plan (1) Pancreatitis Status: Acute Plan: REPEAT AM CBC CMP AMMONIA, AMYLASE AND LIPASE, UA WITH POLANCO PLACMENT. CT ABD PELVIS WITH IV CONTRAST DONE ON ADMISSION, MRI ABD WITH CONTRAST PERFORMED, SEE EMR FOR REPORT. GENTLE IV HYDRATION, NAUSEA CONTROL, PPI. BEDSIDE SUCTION, DT PRECAUTIONS, CONTINUOUS CARDIAC AND BP MONITORING, CONSULT DR CONNORS, CONSULT DR FORTE. GENTLE HYDRATION, STRICT I & OS (2) Abdominal pain Status: Acute (3) Cirrhosis of liver Status: Acute (4) SOB (shortness of breath) Status: Acute (5) Ascites Status: Acute (6) N&V (nausea and vomiting) Status: Acute (7) Hyponatremia Status: Acute
[2018-04-29] MEDS: COLACE CAP 100 MG PO SCH (20:50)
[2018-04-29] MEDS: LIBRIUM PO PRN (20:50)
[2018-04-29 21:52] LABS: HEPATITIS A ANTIBODY IGM Negative (Negative)
[2018-04-29 22:21] LABS: HEPATITIS B CORE IGM Negative (Negative); HEPATITIS B SURFACE ANTIGEN Negative (Negative)
[2018-04-30] MEDS: MYCELEX TROCHE MT SCH ×3 (04:56→16:24)
[2018-04-30 06:26] LABS: BASOPHILS % (AUTO) 0.6 % (0.2-1.0); EOSINOPHILS % (AUTO) 0.2 % (0.9-2.9); HEMATOCRIT 32.6 % (42.0-54.0); HEMOGLOBIN 11.4 g/dL (13.5-18.0); LYMPHOCYTES % (AUTO) 26.9 % (21.0-51.0); MEAN CORPUSCULAR HGB CONC 35.1 g/dL (33.0-35.0); MEAN CORPUSCULAR VOLUME 125.5 fL (80.0-100.0); MEAN PLATELET VOLUME 9.6 fL (7.4-11.0); MONOCYTES # (AUTO) 0.4 x10^3/uL (0.3-0.8); MONOCYTES % (AUTO) 5.9 % (0.0-13.0); NEUTROPHILS # (AUTO) 4.9 x10^3/uL (2.2-4.8); NEUTROPHILS % (AUTO) 66.4 % (42.0-75.0); PLATELET COUNT 96 X10^3/uL (150.0-450.0); RED CELL DISTRIBUTION WIDTH 16.7 % (11.6-16.5); WHITE BLOOD COUNT 7.4 X10^3/uL (3.6-10.0)
[2018-04-30 06:49] LABS: ALANINE AMINOTRANSFERASE 250 Units/L (12-78); ALBUMIN 2.4 g/dL (3.4-5.0); ALKALINE PHOSPHATASE 202 Units/L (46-116); ASPARTATE AMINO TRANSFERASE 695 Units/L (15-37); BLOOD UREA NITROGEN 38 mg/dL (7-18); CALCIUM 8.4 mg/dL (8.5-10.1); CARBON DIOXIDE 15.9 mmol/L (21-32); CHLORIDE 87 mmol/L (98-107); COR CA(FOR HYPOALB) 9.7 mg/dL (8.5-10.1); CREATININE 1.29 mg/dL (0.70-1.30); SODIUM 128 mmol/L (136-145); TOTAL PROTEIN 7.2 g/dL (6.4-8.2); eGFR NON BLACK RACES > 60 (>60)
[2018-04-30 07:24] LABS: BAND NEUTROPHILS % 4 % (0-10)
[2018-04-30 07:26] LABS: PLATELET MORPHOLOGY COMMENT NORMAL (NORMAL); TARGET CELLS SLIGHT
[2018-04-30 09:57] LABS: ABG BASE EXCESS -18.7 mmol/L (-2.0-2.0)
[2018-04-30 09:58] LABS: ABG HCO3 5.2 mmol/L (22-26)
--- NOTE | 2018-04-30 10:00 | RAD ---
Examination: AP chest History: SOB Comparison 04/29/2018 Findings: Continued normal heart size with no acute pulmonary, hilar or pleural lesion. Impression: No interval change; no acute findings. Reported By:
[2018-04-30] MEDS ORDERED: VALIUM INJ ONE ×2 (10:12→10:15)
[2018-04-30] MEDS ORDERED: VALIUM PO PRN (10:30)
[2018-04-30] MEDS ORDERED: VALIUM INJ IVP PRN (10:30)
[2018-04-30] MEDS ORDERED: PEPCID 20 MG IV PREMIX* 20 MG/50 ML BAG IV ONE (10:36)
[2018-04-30] MEDS: PROTONIX INJ 40 MG VIAL IVP SCH (10:43)
[2018-04-30] MEDS ORDERED: MORPHINE SULFATE INJ 2 MG INJ ONE (10:45)
[2018-04-30] MEDS ORDERED: MORPHINE SULFATE INJ 2 MG INJ IVP PRN ×2 (10:47→11:59)
[2018-04-30] MEDS ORDERED: ISOPTO ATROPINE SL PRN (11:37)
[2018-04-30] MEDS ORDERED: ATIVAN INJ 2 MG VIAL IVP PRN (12:07)
[2018-04-30] MEDS: CHECK PATCH XX SCH (12:14)
[2018-04-30] MEDS: MORPHINE SULFATE INJ 4 MG ONE ×2 (12:19→16:24)
[2018-04-30] MEDS: DIFLUCAN PO SCH (15:07)
[2018-04-30] MEDS: MILK OF MAGNESIA PO SCH (16:20)
[2018-04-30] MEDS: NICOTINE PATCH TD SCH (16:23)
[2018-04-30] MEDS: LEVAQUIN PREMIX IV 500 MG 500 MG/100 ML BAG IV SCH (16:32)
[2018-04-30 16:42] VITALS: BP 108/62
[2018-04-30] MEDS ORDERED: PEPCID 20 MG IV PREMIX* 20 MG/50 ML BAG IV SCH (21:00)
== END 2018-04-30 15:09 | disposition hospice, inpatient (51) | DRG 439 ==
LOC: ICU 16:03
PROVIDERS: ADMIT Internal Medicine; ATTEND Internal Medicine
DX: R10.84 Generalized abdominal pain; K70.31 Alcoholic cirrhosis of liver with ascites; K29.60 Other gastritis without bleeding; B37.81 Candidal esophagitis; R06.02 Shortness of breath; K75.89 Other specified inflammatory liver diseases; R53.1 Weakness; K85.90 Acute pancreatitis without necrosis or infection, unspecified; F10.188 Alcohol abuse with other alcohol-induced disorder; K76.6 Portal hypertension; E87.6 Hypokalemia; R11.2 Nausea with vomiting, unspecified; R26.89 Other abnormalities of gait and mobility
CPT/HCPCS: 36415; 36600; 71010; 71045; 74177; 74183; 80053; 80061; 80074; 81001; 82042; 82105; 82140; 82150; 82248; 82378; 82438; 82803; 83690; 83735; 84153; 84302; 84439; 84443; 84999; 85025; 85610; 87070; 87205; 97110; 97163; 97165; A4217; A4222; C9113; S0028; J1956; J2060; J2270; J2405; J2704; J3360; J3480; J7040; S5010

== ENCOUNTER 2018-04-30 15:10 | Inpatient (IN) ==
[2018-04-30] MEDS ORDERED: ISOPTO ATROPINE SL PRN (17:01)
[2018-04-30] MEDS ORDERED: VALIUM INJ IVP PRN (17:01)
[2018-04-30 17:38] VITALS: BMI 29.7
[2018-04-30] MEDS: MORPHINE SULFATE INJ 2 MG INJ IVP PRN ×3 (18:03→23:06)
[2018-04-30] MEDS ORDERED: ISOPTO ATROPINE ONE (19:35)
[2018-05-01] MEDS: MORPHINE SULFATE INJ 2 MG INJ IVP PRN ×2 (02:01→04:20)
[2018-05-01 04:57] VITALS: BP 42/25
== END 2018-05-01 07:10 | disposition home or self-care (01) | DRG 432 ==
LOC: MED/SURG 15:10
PROVIDERS: ADMIT Internal Medicine; ATTEND Internal Medicine
DX: K85.20 Alcohol induced acute pancreatitis without necrosis or infection; R53.1 Weakness; R10.84 Generalized abdominal pain; R06.02 Shortness of breath; Z66 Do not resuscitate; R11.2 Nausea with vomiting, unspecified; I46.9 Cardiac arrest, cause unspecified; K70.31 Alcoholic cirrhosis of liver with ascites
CPT/HCPCS: A4216